=== PATIENT | female | born 2005 | race Caucasian/White ===

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

== ENCOUNTER 2024-06-19 00:37 | Emergency (ER) | payer MEDICAID ==
[~2024-06-19] VITALS: Ht 170.2 cm; Wt 70.3 kg
[~2024-06-19 00:37] MED LIST changes: +CEPH250C PO
[2024-06-19 01:29] LABS: Urine Bacteria MOD /hpf (None Seen); Urine Blood 1+ /uL (Negative); Urine Budding Yeast OCCASIONAL /hpf (None Seen); Urine Clarity Turbid (Clear); Urine Color Yellow (Yellow); Urine Hyaline Cast FEW /lpf (0 - 2); Urine Mucus FEW (None Seen); Urine Protein, UAD 1+ (Negative); Urine Specific Gravity 1.036 (1.001-1.035); Urine Urobilinogen 2 mg/dL (Negative); Urine WBC 38 /hpf (0 - 5)
[2024-06-19 02:02] LABS: Basophils # (auto) 0.1 10 ^3/uL (0-0.2); Eosinophils # (auto) 0 10 ^3/uL (0-0.8); Eosinophils % (auto) 0.2 % (0.0-7.0); Hemoglobin 14.9 g/dL (12.2-16.2); Lymphocytes # (auto) 1.8 10 ^3/uL (0.4-5.4); Lymphocytes % (auto) 17.9 % (10.0-50.0); Mean Corpuscular Hemoglobin 33.2 pg (28.0-32.0); Mean Corpuscular Hgb Conc. 35.5 g/dL (32.0-36.0); Mean Corpuscular Volume 93.4 fL (80.0-100.0); Monocytes # (auto) 0.6 10 ^3/uL (0-1.3); Neutrophils # (auto) 7.5 10 ^3/uL (1.6-8.6); Neutrophils % (auto) 74.9 % (37.0-80.0); Platelet Count (auto) 299 10^3/uL (140-450); Red Blood Cells 4.49 10^6/uL (4.0-5.20)
[2024-06-19 02:17] LABS: Alanine Aminotransferase 10 U/L (7-40); Albumin 5.1 g/dL (3.2-4.8); Alkaline Phosphatase 46 U/L (46-116); Anion Gap 13 (5-15); Aspartate Aminotransferase 11 U/L (13-40); BUN/Creatinine Ratio 11.9 (10.0-20.0); Blood Urea Nitrogen 8 mg/dL (9-23); Calcium 10.3 mg/dL (8.7-10.4); Carbon Dioxide 19 mmol/L (20-31); Chloride 106 mmol/L (98-107); Glucose 83 mg/dL (74-106); Potassium 3.3 mmol/L (3.5-5.1); Sodium 138 mmol/L (136-145)
[2024-06-19 02:18] LABS: Bilirubin, Total 1.2 mg/dL (0.2-1.0); Total Protein 7.9 g/dL (5.7-8.2)
[2024-06-19 03:20] VITALS: TEMP 98.6
[2024-06-19] MEDS: SODIUM CHLORIDE 0.9% 2,000 ML IV ONE (03:35)
[2024-06-19] MEDS: METOCLOPRAMIDE HCL 5MG/ml INJ 2ml VIAL IV ONE (03:35)
[2024-06-19 03:49] VITALS: O2SAT 98
[2024-06-19] MEDS: ONDANSETRON HCL 4 MG/2 ML VIAL IV ONE (04:19)
[2024-06-19] MEDS: MORPHINE SULFATE 4 MG/ML SYR/VIAL IV ONE (04:19)
[2024-06-19] MEDS ORDERED: DOXY10TA OR (04:57)
[2024-06-19] MEDS ORDERED: CEPH500C PO (04:57)
[2024-06-19] MEDS ORDERED: METO-281 PO (04:57)
[2024-06-19 05:07] VITALS: BP 101/54; PULSE 75; RESP 16
[2024-06-19] MEDS ORDERED: cefTRIAXone 1GM/50ML D5W 50 ML IV ONE (05:30)
[2024-06-19] MEDS ORDERED: POTASSIUM CHL 20 Meq TABLET PO ONE (05:30)
== END 2024-06-19 05:24 | disposition home or self-care (01) ==
LOC: ER 00:37
DX: O21.0 Mild hyperemesis gravidarum (principal); R10.2 Pelvic and perineal pain; O23.41 Unspecified infection of urinary tract in pregnancy, first trimester; N39.0 Urinary tract infection, site not specified; E87.6 Hypokalemia; Z3A.01 Less than 8 weeks gestation of pregnancy
CPT/HCPCS: 36415; 76801; 76817; 80053; 81001; 84702; 85025; 96361; 96374; 96375; 99285; J2270; J2405; J2765; J7030

== ENCOUNTER 2024-10-07 23:41 | Observation (INO) | payer MEDICAID ==
[~2024-10-07] VITALS: Ht 170.2 cm; Wt 77.1 kg
[~2024-10-07 23:41] MED LIST changes: +CEPH500C PO; +DOXY10TA OR; +METO-281 PO
[2024-10-08] MEDS: ACETAMINOPHEN 325 MG TAB PO ONE (00:21)
[2024-10-08] MEDS: ACETAMINOPHEN 500 MG TAB or CAP PO ONE (00:21)
--- NOTE | 2024-10-08 00:28 | DVHDS2 ---
Physician Discharge Progress N Final Diagnosis: UTI Right flank pain, resolved Operations or Procedures: Operations or Procedures S: 18yo IUP@22.2wks presents to OB triage with c/o 10/10 pain on right mid back that radiates all over her right side. Pt reports hx of appendectomy. Denies UTI s/sx. Pt has had trouble enrolling in [employer] so she has not received care yet. Taking PNV. Had ED visit at [facility] at 6w3d which gave her the KATY of 02/09/25. Denies UCs/LOF/VB/LUNA/vision changes/RUQ pain. Endorses +FM. O: VSS, afebrile 98.3F per RN +FHTs by RN Right CVA pain noted upon palpation tylenol 1000mg PO given Nubain 10mg IVP once given IV fluids and rocephin 1g IVPB given Urine culture ordered Laboratory Tests Test 10/08/24 00:05 10/08/24 01:02 Range/Units Urine Color Colorless Yellow Urine Clarity Clear Clear Urine pH 7.0 5.0-9.0 Urine Specific Woody 1.004 1.001-1.035 Urine Protein Trace H Negative Urine Ketones Negative Negative Urine Blood 2+ H Negative /uL Urine Nitrite Negative Negative Urine Bilirubin Negative Negative Urine Urobilinogen Normal Negative mg/dL Urine Leukocyte Esterase 2+ Negative /uL Urine RBC 5 0 - 4 /hpf Urine Microscopic WBC 21 H 0-5 /HPF Urine Squamous Epithelial Cells Few <5 /hpf Urine Bacteria Few H None Seen /hpf Urine Glucose Normal Normal mg/dL Urine Opiates Screen Neg NEGATIVE Urine Fentanyl Screen Neg NEGATIVE Urine Barbiturates Screen Neg NEGATIVE Urine Phencyclidine Screen Neg NEGATIVE Urine Amphetamines Screen Neg NEGATIVE Urine Benzodiazepines Screen Neg NEGATIVE Urine Cocaine Screen Neg NEGATIVE Urine Cannabinoids Screen Pos NEGATIVE White Blood Count 9.9 4.4-10.8 10^3/uL Red Blood Count 3.48 L 4.0-5.20 10^6/uL Hemoglobin 11.7 L 12.2-16.2 g/dL Hematocrit 33.0 L 36.0-46.0 % Mean Corpuscular Volume 94.7 80.0-100.0 fL Mean Corpuscular Hemoglobin 33.4 H 28.0-32.0 pg Mean Corpuscular Hemoglobin Concent 35.3 32.0-36.0 g/dL Red Cell Distribution Width 13.6 11.8-14.3 % Platelet Count 238 140-450 10^3/uL Mean Platelet Volume 8.3 6.9-10.8 fL Neutrophils (%) (Auto) 76.1 37.0-80.0 % Lymphocytes (%) (Auto) 14.0 10.0-50.0 % Monocytes (%) (Auto) 8.6 0.0-12.0 % Eosinophils (%) (Auto) 0.9 0.0-7.0 % Basophils (%) (Auto) 0.4 0.0-2.0 % Neutrophils # (Auto) 7.5 1.6-8.6 10 ^3/uL Lymphocytes # (Auto) 1.4 0.4-5.4 10 ^3/uL Monocytes # (Auto) 0.8 0-1.3 10 ^3/uL Eosinophils # (Auto) 0.1 0-0.8 10 ^3/uL Basophils # (Auto) 0 0-0.2 10 ^3/uL Nucleated Red Blood Cells 0.0 % Prothrombin Time 10.1 9.3-11.8 sec Prothrombin Time INR 0.95 0.9-1.15 Activated Partial Thromboplast Time 25.8 24.5-34.5 SEC Sodium Level 137 136-145 mmol/L Potassium Level 3.6 3.5-5.1 mmol/L Chloride Level 108 H 98-107 mmol/L Carbon Dioxide Level 19 L 20-31 mmol/L Anion Gap 10 5-15 Blood Urea Nitrogen < 5 L 9-23 mg/dL Creatinine 0.48 L 0.550-1.02 mg/dL Glomerular Filtration Rate Calc 139 >90 mL/min BUN/Creatinine Ratio 10.4 10.0-20.0 Serum Glucose 84 74-106 mg/dL Hemoglobin A1c 4.6 <5.7 % A1C Calcium Level 9.3 8.7-10.4 mg/dL Total Bilirubin 0.6 0.2-1.0 mg/dL Aspartate Amino Transferase (AST) 14 13-40 U/L Alanine Aminotransferase (ALT) 11 7-40 U/L Alkaline Phosphatase 46 46-116 U/L Total Protein 6.3 5.7-8.2 g/dL Albumin 3.9 3.2-4.8 g/dL Rapid Plasma Reagin Pending Treponema pallidum Ab (TP-PA) Pending Hepatitis B Surface Antigen Negative Negative Hepatitis C Antibody Negative Negative HIV (1&2) Antibody Negative Negative Rubella IgG Antibody Pending TB Test (QFT) Gold Plus Pending TB Test (QFT) Nil Pending TB Test (QFT) Mitogen Pending TB Test (QFT) Antigen 1 Pending TB Test (QFT) Antigen 2 Pending TB Test (QFT) Criteria Pending Vital Signs Date Time Temp Pulse Resp B/P (MAP) Pulse Ox O2 Delivery O2 Flow Rate FiO2 10/08/24 00:49 75 16 115/75 A: 18yo IUP@22.2wks UTI right flank pain, resolved P: D/C home SAB precautions reviewed Drink 1 gallon of water a day Referred to [facility] maternal health clinic to establish PNC with Dr. Silvetsre on 10/08/[address] Silvestre consulted, agrees with POC. Other Interventions Other Interventions [place] [id number] Ph: [phone] DIAGNOSTIC IMAGING Diagnostic Imaging Report : [id number] Signed PATIENT: AJCEY MARTINO GACCT: [id number] UNIT: [id number] : 2005 LOC: [facility] ROOM / BED: TRIAGE2 / A AGE / SEX: 18 / F ADM STATUS: ADM IN SERVICE [id number] ORDERING PHYSICIAN: JORGE PEDERSEN CNM PROCEDURE(s): OBUS - OB ULTRASOUND COMP GTR 14 WKS REASON: NO CARE @ 22.1 WEEKS GESTATION ORDER NUMBER(s): [id number], ACCESSION NUMBER(s): [id number] OB ULTRASOUND, LIMITED CLINICAL INDICATION: NO CARE @ 22.1 WEEKS GESTATION TECHNIQUE: Multiple grayscale ultrasound and M-mode images were obtained of the pelvis for evaluation of intrauterine . COMPARISON: US OB ULTRASOUND COMP LESS 14WKS on DOS: 06/19/24 FINDINGS: A single living fetus is seen in breech presentation. Biparietal diameter: 5.47 cm (22 weeks, 5 days) Head Circumference: 20.76 cm (22 weeks, 6 days) Abdomen Circumference: 18.37 cm (23 weeks, 1 days) Femur Length: 3.82 cm (22 weeks, 2 days) Estimated weight: 533 grams (+/- 80 grams). 1 lb 3 oz Placenta: Anterior. Amniotic fluid: Visibly normal. Cervix is 3.1 cm and closed. heart rate: 135 beats/min. A complete anatomic survey was not performed on this exam. IMPRESSION: Single living intrauterine with an estimated gestational age of 22 weeks, 5 days, corresponding to an estimated date of delivery of 02/06/2025. ATED BY: BELÉN PACHECO MD DICTATED DATE/TIME: 10/08/24200 SIGNED BY: BELÉN PACHECO MD SIGNED DATE/TIME: 10/08/24200 CC: Consultations: Consultations [place] [id number] Ph: [phone] DIAGNOSTIC IMAGING Diagnostic Imaging Report : [id number] Signed PATIENT: JACEY MARTINO GACCT: [id number] UNIT: [id number] : 2005 LOC: [facility] ROOM / BED: TRIAGE2 / A AGE / SEX: 18 / F ADM STATUS: ADM IN SERVICE 0008 ORDERING PHYSICIAN: JORGE PEDERSEN CNM PROCEDURE(s): ABDC - ABDOMEN COMPLETE SONOGRAM REASON: RIGHT SIDED PAIN @ 22.1 WEEKS GESTATION ORDER NUMBER(s): [id number], ACCESSION NUMBER(s): [id number] ABDOMINAL ULTRASOUND CLINICAL HISTORY: RIGHT SIDED PAIN @ 22.1 WEEKS GESTATION TECHNIQUE: Multiple grayscale and color Doppler ultrasound images were obtained of the abdomen. WID: COMPARISON: ABPL on DOS: 12/22/21 FINDINGS: Liver and Biliary System: Homogeneous echotexture, normal size measuring 12.8 cm. No focal hepatic observations. No intrahepatic bile duct dilatation. The common duct measures 0.4 cm at the jarrod hepatis. The gallbladder normal caliber. No cholelithiasis or gallbladder wall thickening.. Pancreas: Obscured due to overlying bowel gas Spleen: is within normal limits. Kidneys: The right kidney is 10.1 cm and the left kidney is 11 cm. Mild right hydronephrosis. No left hydronephrosis, increased echogenicity, shadowing stone, or focal lesion. Aorta: Visualized portions are normal in caliber. IVC: Visualized portions are normal in caliber. Peritoneal Space: No abdominal ascites. IMPRESSION: Mild right hydronephrosis. This could be due to gravid uterus. ATED BY: BELÉN PACHECO MD DICTATED DATE/TIME: 10/08/24199 SIGNED BY: BELÉN PACHECO MD SIGNED DATE/TIME: 10/08/24199 CC: Condition on Discharge: Stable Disposition: Home Discharge Instructions: Diet: Regular Activity: No Restrictions, As Tolerated Medications: see med list Follow Up Care: Specialist: f/u with maternal health on 10/08/24 at 0900 Discharge Statement: "Patient was advised to return to the ER or call 911 if any headaches, dizziness, shortness of breath, chest pain, abdominal pain, bleeding, fevers, or worsening of medical condition. Patient was counseled about treatment plan, medications, possible side effects, patientverbalized understanding. All questions were answered to the best of my ability. This discharge took greater then 30 minutes in planning, reviewing documentation, counseling the patient, and discussing with other team members." JORGE PEDERSEN CNM Oct 08, 2024 00:28
[2024-10-08] MEDS: LACTATED RINGER'S 1,000 ML IV ONE (00:35)
[2024-10-08 00:49] VITALS: BP 115/75; PULSE 75; RESP 16
[2024-10-08] MEDS: NALBUPHINE HCL 10 MG/1ml INJECTION IV ONE (00:49)
[2024-10-08 00:51] LABS: Urine Bacteria FEW /hpf (None Seen); Urine Blood 2+ /uL (Negative); Urine Clarity Clear (Clear); Urine Color Colorless (Yellow); Urine Protein, UAD TRACE (Negative); Urine Specific Gravity 1.004 (1.001-1.035); Urine Squamous Epithelial Cell FEW /hpf (<5); Urine Urobilinogen Normal (Negative); Urine WBC 21 /HPF (0-5)
[2024-10-08 01:23] LABS: Basophils # (auto) 0 10 ^3/uL (0-0.2); Basophils % (auto) 0.4 % (0.0-2.0); Eosinophils # (auto) 0.1 10 ^3/uL (0-0.8); Eosinophils % (auto) 0.9 % (0.0-7.0); Hemoglobin 11.7 g/dL (12.2-16.2); Lymphocytes # (auto) 1.4 10 ^3/uL (0.4-5.4); Mean Corpuscular Hemoglobin 33.4 pg (28.0-32.0); Mean Corpuscular Hgb Conc. 35.3 g/dL (32.0-36.0); Mean Corpuscular Volume 94.7 fL (80.0-100.0); Monocytes # (auto) 0.8 10 ^3/uL (0-1.3); Monocytes % (auto) 8.6 % (0.0-12.0); Neutrophils # (auto) 7.5 10 ^3/uL (1.6-8.6); Neutrophils % (auto) 76.1 % (37.0-80.0); Platelet Count (auto) 238 10^3/uL (140-450); Red Blood Cells 3.48 10^6/uL (4.0-5.20); Red Cell Distribution Width 13.6 % (11.8-14.3); White Blood Cell 9.9 10^3/uL (4.4-10.8)
[2024-10-08 01:42] LABS: Alanine Aminotransferase 11 U/L (7-40); Albumin 3.9 g/dL (3.2-4.8); Alkaline Phosphatase 46 U/L (46-116); Anion Gap 10 (5-15); Aspartate Aminotransferase 14 U/L (13-40); BUN/Creatinine Ratio 10.4 (10.0-20.0); Bilirubin, Total 0.6 mg/dL (0.2-1.0); Blood Urea Nitrogen < 5 mg/dL (9-23); Calcium 9.3 mg/dL (8.7-10.4); Carbon Dioxide 19 mmol/L (20-31); Chloride 108 mmol/L (98-107); Glucose 84 mg/dL (74-106); Potassium 3.6 mmol/L (3.5-5.1); Sodium 137 mmol/L (136-145); Total Protein 6.3 g/dL (5.7-8.2)
[2024-10-08 01:44] LABS: INR 0.95 (0.9-1.15); Partial Thromboplastin Time 25.8 SEC (24.5-34.5); Prothrombin Time 10.1 sec (9.3-11.8)
[2024-10-08 01:57] LABS: Amphetamine Screen, Urine Neg (NEGATIVE); Barbiturate Scree,Urine Neg (NEGATIVE)
[2024-10-08 01:58] LABS: Benzodiazephine Screen, Urine Neg (NEGATIVE); Cannabinoid Screen, Urine Pos (NEGATIVE); Cocaine Screen, Urine Neg (NEGATIVE); Opiate Scree,Urine Neg (NEGATIVE); Phencyclidine Screen, Urine Neg (NEGATIVE)
--- NOTE | 2024-10-08 02:03 | DVH ---
ABDOMINAL ULTRASOUND CLINICAL HISTORY: RIGHT SIDED PAIN @ 22.1 WEEKS GESTATION TECHNIQUE: Multiple grayscale and color Doppler ultrasound images were obtained of the abdomen. WID: COMPARISON: ABPL on DOS: 12/22/21 FINDINGS: Liver and Biliary System: Homogeneous echotexture, normal size measuring 12.8 cm. No focal hepatic observations. No intrahepatic bile duct dilatation. The common duct measures 0.4 cm at the jarrod h epatis. The gallbladder normal caliber. No cholelithiasis or gallbladder wall thickening.. Pancreas: Obscured due to overlying bowel gas Spleen: is within normal limits. Kidneys: The right kidney is 10.1 cm and the left kidney is 11 cm. Mild right hydronephrosis. No le ft hydronephrosis, increased echogenicity, shadowing stone, or focal lesion. Aorta: Visualized portions are normal in caliber. IVC: Visualized portions are normal in caliber. Peritoneal Space: No abdominal ascites. IMPRESSION: Mild right hydronephrosis. This could be due to gravid uterus.
--- NOTE | 2024-10-08 02:04 | DVH ---
OB ULTRASOUND, LIMITED CLINICAL INDICATION: NO CARE @ 22.1 WEEKS GESTATION TECHNIQUE: Multiple grayscale ultrasound and M-mode images were obtained of the pelvis for evaluation of intrauterine . COMPARISON: US OB ULTRASOUND COMP LESS 14WKS on DOS: 06/19/24 FINDINGS: A single living fetus is seen in breech presentation. Biparietal diameter: 5.47 cm (22 weeks, 5 days) Head Circumference: 20.76 cm (22 weeks, 6 days) Abdomen Circumference: 18.37 cm (23 weeks, 1 days) Femur Length: 3.82 cm (22 weeks, 2 days) Estimated weight: 533 grams (+/- 80 grams). 1 lb 3 oz Placenta: Anterior. Amniotic fluid: Visibly normal. Cervix is 3.1 cm and closed. heart rate: 135 beats/min. A complete anatomic survey was not performed on this exam. IMPRESSION: Single living intrauterine with an estimated gestational age of 22 weeks, 5 days, corresp onding to an estimated date of delivery of 02/06/2025.
[2024-10-08] MEDS: cefTRIAXone 1GM/50ML D5W 50 ML IV ONE (02:17)
[2024-10-08] MEDS: SODIUM CHLORIDE 0.9% 1,000 ML IV SCH (02:18)
[2024-10-08] MEDS ORDERED: diphenhdrAMINE HCL 50 MG/1 ML VL IV ONE (03:15)
[2024-10-08] MEDS ORDERED: PREN-96 PO (12:47)
[2024-10-09 05:07] LABS: Rubella Antibodies, IgG 1.38 index (Immune >0.99)
[2024-10-09 08:06] LABS: RPR Non Reactive (Non Reactive)
== END 2024-10-08 03:12 | disposition home or self-care (01) ==
LOC: LDRP 23:41
PROVIDERS: ADMIT Obstetrics & Gynecology; ATTEND Obstetrics & Gynecology
DX: O23.42 Unspecified infection of urinary tract in pregnancy, second trimester (principal); N39.0 Urinary tract infection, site not specified; O99.891 Other specified diseases and conditions complicating pregnancy; M54.9 Dorsalgia, unspecified; R10.9 Unspecified abdominal pain; R79.1 Abnormal coagulation profile; Z90.49 Acquired absence of other specified parts of digestive tract; Z98.890 Other specified postprocedural states; Z79.899 Other long term (current) drug therapy; Z3A.22 22 weeks gestation of pregnancy
CPT/HCPCS: 36415; 59025; 76700; 76805; 80053; 80307; 81001; 81002; 83036; 85025; 85610; 85730; 86592; 86703; 86762; 86780; 86803; 86850; 86900; 86901; 87086; 87340; 94760; 96361; 96365; 96375; G0378; J0696; J2300; J7030; 96374

== ENCOUNTER 2024-12-14 20:11 | Observation (INO) | payer MEDICAID ==
[~2024-12-14] VITALS: Ht 170.2 cm; Wt 77.1 kg
[~2024-12-14 20:11] MED LIST changes: -CEPH250C PO; -CEPH500C PO; -CIPR-173 PO; -DOXY10TA OR; -HYDR-4902 PO; -METO-281 PO; -ONDA-144 PO; -PERCOT PO; +PREN-96 PO
[2024-12-14] MEDS ORDERED: LACTATED RINGER'S 1,000 ML IV ONE (21:00)
[2024-12-14 21:05] LABS: Urine Bacteria FEW /hpf (None Seen); Urine Blood Negative /uL (Negative); Urine Clarity Turbid (Clear); Urine Color Colorless (Yellow); Urine Protein, UAD Negative (Negative); Urine Specific Gravity 1.006 (1.001-1.035); Urine Sperm PRESENT /hpf (None Seen); Urine Squamous Epithelial Cell MOD /hpf (<5); Urine Urobilinogen Normal (Negative); Urine WBC 5 /HPF (0-5)
[2024-12-14 21:16] LABS: Cannabinoid Screen, Urine Pos (NEGATIVE)
[2024-12-14 21:28] LABS: Basophils # (auto) 0 10 ^3/uL (0-0.2); Basophils % (auto) 0.2 % (0.0-2.0); Eosinophils # (auto) 0.1 10 ^3/uL (0-0.8); Hematocrit 30.7 % (36.0-46.0); Hemoglobin 10.9 g/dL (12.2-16.2); Lymphocytes # (auto) 1.6 10 ^3/uL (0.4-5.4); Lymphocytes % (auto) 16.6 % (10.0-50.0); Mean Corpuscular Hemoglobin 32.7 pg (28.0-32.0); Mean Corpuscular Hgb Conc. 35.6 g/dL (32.0-36.0); Mean Corpuscular Volume 91.8 fL (80.0-100.0); Monocytes # (auto) 0.7 10 ^3/uL (0-1.3); Monocytes % (auto) 7.7 % (0.0-12.0); Neutrophils # (auto) 7.1 10 ^3/uL (1.6-8.6); Neutrophils % (auto) 74.5 % (37.0-80.0); Nucleated Red Blood Cells % 0.1 %; Platelet Count (auto) 226 10^3/uL (140-450); Red Blood Cells 3.34 10^6/uL (4.0-5.20); White Blood Cell 9.6 10^3/uL (4.4-10.8)
[2024-12-14 21:29] LABS: Amphetamine Screen, Urine Neg (NEGATIVE); Barbiturate Scree,Urine Neg (NEGATIVE); Benzodiazephine Screen, Urine Neg (NEGATIVE); Cocaine Screen, Urine Neg (NEGATIVE); Opiate Scree,Urine Neg (NEGATIVE); Phencyclidine Screen, Urine Neg (NEGATIVE)
--- NOTE | 2024-12-14 23:22 | DVHDS2 ---
Physician Discharge Progress N Final Diagnosis: 31 weeks gestation Abdominal discomfort Condition on Discharge: Good Disposition: Home Discharge Instructions: Diet: Regular Activity: No Restrictions, As Tolerated Follow Up/Referral: RTC as scheduled. RTH PRN Medications: vits Follow Up Care: Discharge Statement: "Patient was advised to return to the ER or call 911 if any headaches, dizziness, shortness of breath, chest pain, abdominal pain, bleeding, fevers, or worsening of medical condition. Patient was counseled about treatment plan, medications, possible side effects, patientverbalized understanding. All questions were answered to the best of my ability. This discharge took greater then 30 minutes in planning, reviewing documentation, counseling the patient, and discussing with other team members." Visit Coding OBGYN Date of Service: Dec 14, 2024 Billing Provider: TIFFANIE RASHID CNM ABA TUTOR Common Visit Codes: 62796-UFP/OBS SAME DATE (HIGH) ABA TUTOR Procedure Codes: 61684-04- NON-STRESS TEST TIFFANIE RASHID CNM Dec 14, 2024 23:22
[2024-12-16 08:07] LABS: Rubella Antibodies, IgG 1.27 index (Immune >0.99)
[2024-12-16 15:07] LABS: Chlamydia Trachomatis, NAA Negative (Negative); Neisseria gonorrhoeae, NAA Negative (Negative)
== END 2024-12-14 22:29 | disposition home or self-care (01) ==
LOC: LDRP 20:11
PROVIDERS: ADMIT Obstetrics & Gynecology; ATTEND Obstetrics & Gynecology
DX: O99.891 Other specified diseases and conditions complicating pregnancy (principal); M54.9 Dorsalgia, unspecified; R10.9 Unspecified abdominal pain; Z98.890 Other specified postprocedural states; Z79.899 Other long term (current) drug therapy; Z3A.31 31 weeks gestation of pregnancy
CPT/HCPCS: 36415; 59025; 80307; 81001; 81002; 83036; 85025; 86703; 86762; 86780; 86850; 86900; 86901; 87340; 87491; 87591; 94760; 96360; G0378

== ENCOUNTER 2025-06-15 15:25 | Inpatient (IN) | payer MEDICAID ==
[~2025-06-15] VITALS: Ht 162.6 cm; Wt 82.2 kg
[2025-06-15 15:53] LABS: Hematocrit 37.2 % (36.0-46.0); Hemoglobin 13.1 g/dL (12.2-16.2); Mean Corpuscular Hemoglobin 29.3 pg (28.0-32.0); Mean Corpuscular Volume 83.2 fL (80.0-100.0); Nucleated Red Blood Cells % 0.6 %
[2025-06-15 16:23] LABS: Urine Protein, UAD 1+ (Negative)
--- NOTE | 2025-06-15 17:09 | ED.PDOC ---
History of Present Illness HPI Comments 19-year-old female came to the ER stating that she has been having nausea vomiting for the past five days. Patient states that along with the nausea vomiting she has been having abdominal pain. three. One live. She did have D&C during her last . This CT turbinate by taking pills last pill taken today. She continues to have nausea. She does have hyperemesis gravidim. Denies any other symptoms. Chief Complaint: Abdominal Pain Time Seen by MD: 15:28 Primary Care Provider: DU Reviewed Notes: Nurses Notes, Medications, Allergies Allergies: Coded Allergies: Shellfish Allergy (Verified Allergy, Severe, Hives and Respiratory Distress, 12/14/24) Home Meds Active Scripts Vit W/ Ferrous Fumara ( One Daily) Daily Tab, 1 TAB PO DAILY, #90 TAB 3 Refills Prov:JORGE PEDERSEN MARNIEItz 10/08/24 Information Source: Patient Mode of Arrival: Ambulatory Severity: Moderate Timing: Days Duration: Since onset Past Medical History PAST MEDICAL HISTORY: Denies Surgical History: Denies all surgeries YARN WASHER History: No Pertinent YARN WASHER History, Ovarian Cysts Family History Family History: Reviewed,noncontributory to illness, No family hx of DM, No family hx of Heart stormy, No family hx of Lung stormy Social History Smoker: Non-Smoker Alcohol: Denies ETOH Use Drugs: Denies Drug Use Lives In: Home Constitutional: denies: chills, diaphoresis, fatigue, fever, malaise, sweats, weakness, others EENTM: denies: blurred vision, double vision, ear bleeding, ear discharge, ear drainage, ear pain, ear ringing, eye pain, eye redness, hearing loss, mouth pain, mouth swelling, nasal discharge, nose bleeding, nose congestion, nose pain, photophobia, tearing, throat pain, throat swelling, voice changes, others Respiratory: denies: cough, hemoptysis, orthopnea, SOB at rest, shortness of b reath, SOB with excertion, stridor, wheezing, others Cardiovascular: denies: chest pain, dizzy spells, diaphoresis, Dyspnea on exertion, edema, irregular heart beat, left arm pain, lightheadedness, palpitations, PND, syncope, others Gastrointestinal: reports: nausea, vomiting; denies: abdomen distended, abdominal pain, blood streaked bowels, constipated, diarrhea, dysphagia, difficulty swallowing, hematemesis, melena, poor appetite, poor fluid intake, rectal bleeding, rectal pain, others Genitourinary: denies: abnormal vagina bleeding, burning, dyspareunia, dysuria, flank pain, frequency, hematuria, incontinence, pain, , vagina discharge, urgency, others Neurological: denies: dizziness, fainting, headache, left sided numbness, left sided weakness, numbness, paresthesia, pre-existing deficit, right sided numbness, right sided weakness, seizure, speech problems, tingling, tremors, weakness, others Musculoskeletal: denies: back pain, gout, joint pain, joint swelling, muscle pain, muscle stiffness, neck pain, others Integumetry: denies: bruises, change in color, change in hair/nails, dryness, laceration, lesions, lumps, rash, wounds, others Allergic/Immunocompromised: denies: Difficulty Healing, Frequent Infections, Hives, Itching, others Hematologic/Lymphatic: denies: anemia, blood clots, easy bleeding, easy bruising, swollen glands, others Endocrine: denies: excessive hunger, excessive sweating, excessive thirst, excessive urination, flushing, intolerance to cold, intolerance to heat, unexplained weight gain, unexplained weight loss, others Psychiatric: denies: anxiety, bipolar disorder, depression, hopeless, panic disorder, schizophrenia, sleepless, suicidal, others Physical Exam General Appearance: Moderate Distress HEENT: Normal ENT Inspection, Pharynx Normal, TMs Normal Neck: Full Range of Motion, Non-Tender, Normal, Normal Inspection Respiratory: Chest Non-Tender, Lungs Clear, No Accessory Muscle Use, No Respiratory Distress, Normal Breath Sounds Cardiovascular: No Edema, No JVD, No Murmur, No Gallop, Normal Peripheral Pulses, Regular Rate/Rhythm Breast Exam: Deferred Gastrointestinal: No Organomegaly, Non Tender, No Pulsatile Mass, Normal Bowel Sounds, Soft Genitalia: Deferred Pelvic: Deferred Rectal: Deferred Extremities: No calf tenderness, Normal capillary refill, Normal inspection, Normal range of motion, Non-tender, No pedal edema Musculoskeletal : Apperance: Normal Neurologic: Alert, director medical writing II-XII nml as Tested, No Motor Deficits, Normal Affect, Normal Mood, No Sensory Deficits Cerebellar Function: Normal Reflexes: Normal Skin: Dry, Normal Color, Warm Peripheral Pulses: 3+ Radial (R), 3+ Radial (L) Lymphatic: No Adenopathy Was a procedure done? Was a procedure done?: No Differential Dx Considerations may include: Intractable vomiting Electrolyte imbalance X-Ray, Labs, Meds, VS Vital Signs Date Time Temp Pulse Resp B/P (MAP) Pulse Ox O2 Delivery O2 Flow Rate FiO2 06/15/25 15:27 99.2 86 16 124/79 97 99.2 Lab Test 06/15/25 15:43 06/15/25 15:33 Range/Units White Blood Count 8.1 4.4-10.8 10^3/uL Red Blood Count 4.48 4.0-5.20 10^6/uL Hemoglobin 13.1 12.2-16.2 g/dL Hematocrit 37.2 36.0-46.0 % Mean Corpuscular Volume 83.2 80.0-100.0 fL Mean Corpuscular Hemoglobin 29.3 28.0-32.0 pg Mean Corpuscular Hemoglobin Concent 35.2 32.0-36.0 g/dL Red Cell Distribution Width 15.8 H 11.8-14.3 % Platelet Count 354 140-450 10^3/uL Mean Platelet Volume 7.9 6.9-10.8 fL Neutrophils (%) (Auto) 66.7 37.0-80.0 % Lymphocytes (%) (Auto) 25.0 10.0-50.0 % Monocytes (%) (Auto) 7.1 0.0-12.0 % Eosinophils (%) (Auto) 0.7 0.0-7.0 % Basophils (%) (Auto) 0.5 0.0-2.0 % Neutrophils # (Auto) 5.4 1.6-8.6 10 ^3/uL Lymphocytes # (Auto) 2.0 0.4-5.4 10 ^3/uL Monocytes # (Auto) 0.6 0-1.3 10 ^3/uL Eosinophils # (Auto) 0.1 0-0.8 10 ^3/uL Basophils # (Auto) 0 0-0.2 10 ^3/uL Nucleated Red Blood Cells 0.6 % Urine Color Yellow Yellow Urine Clarity Clear Clear Urine pH 6.0 5.0-9.0 Urine Specific [place] 1.037 H 1.001-1.035 Urine Protein 1+ H Negative Urine Ketones 4+ H Negative Urine Blood 2+ H Negative /uL Urine Nitrite Negative Negative Urine Bilirubin Negative Negative Urine Urobilinogen 2 H Negative mg/dL Urine Leukocyte Esterase 1+ Negative /uL Urine RBC 110 0 - 4 /hpf Urine Microscopic WBC 16 H 0-5 /HPF Urine Squamous Epithelial Cells Few <5 /hpf Urine Bacteria None seen None Seen /hpf Urine Mucus Few None Seen Urine Glucose Normal Normal mg/dL Urine Test Positive Negative Patient alert. Complaining of nausea vomiting. Vitals stable. Answering questions. She did take an pill. UA shows UTI. Was given Keflex. She continues to have vomiting. Establish intravenous access. Was given fluids. Explained to the patient that she will be admitted. Continue monitoring. Time of 1ST Reevaluation: 17:07 Reevaluation 1ST: Unchanged Patient Education/Counseling: Diagnosis, Treatment, Prognosis Family Education/Counseling: Diagnosis, Treatment, Prognosis, No Family Present SEPSIS Sepsis Screen Date sepsis recognized/suspect: Jun 15, 2025 Time Sepsis recognized/suspect: 1526 Recent Procedure: No On Antibiotic Therapy: No Respiratory Rate >20: No Heart Rate >90: No Temp<36 C (96.8 F) or >38.3 C: No SBP <90 or MAP <65 mmHG: No New Acute Mental Status Change: No Is the patient on CPAP, BIPAP,: No Physician Orders Ob Ultrasound Comp Less 14wks (06/15/25 16:35) Sodium Chloride 0.9% (06/15/25 16:45) Complete Blood Count (06/15/25 16:49) Basic Metabolic Panel (06/15/25 16:49) Sodium Chloride 0.9% (06/15/25 17:00) Sodium Chloride 0.9% (06/15/25 17:00) Vital Signs Date Time Temp Pulse Resp B/P (MAP) Pulse Ox O2 Delivery O2 Flow Rate FiO2 06/15/25 15:27 99.2 86 16 124/79 97 99.2 Laboratory Tests Test 06/15/25 15:43 White Blood Count 8.1 10^3/uL (4.4-10.8) Departure 1 Departure Time of Disposition: 17:08 Impression: Primary Impression: Dehydration Additional Impressions: Urinary tract infection Qualified Codes: N30.01 - Acute cystitis with hematuria Vaginal bleeding Disposition: ADMITTED INPATIENT Admit to: Med Surg Condition: Guarded Critical Care Note Critical Care Time?: No Stability Stability form required: No Heart Score Heart Score: Heart Score Response (Comments) Value History N/A 0 EKG N/A 0 Age N/A 0 Risk Factors N/A 0 Troponin N/A 0 Total 0 WILLIAM WRIGHT MD Jun 15, 2025 17:09
[2025-06-15] MEDS: SODIUM CHLORIDE 0.9% 1,000 ML IV ONE ×3 (17:35→19:05)
--- NOTE | 2025-06-15 17:44 | DVH ---
OBSTETRIC ULTRASOUND PRIOR TO 14 WEEKS CLINICAL INDICATION: cramping, patient took pill yesterday. Heavy bleeding. TECHNIQUE: Multiple grayscale ultrasound images were obtained of the pelvis via transabdominal a appr [facility] for obstetric evaluation. Limited color Doppler and spectral Doppler acquisitions were also obta ined. COMPARISON: US OB ULTRASOUND COMP GTR 14 WKS on DOS: 10/08/24, US OB ULTRASOUND COMP LESS 14WKS on DOS : 06/19/24, US OB TRANS VAGINAL US on DOS: 06/19/24 FINDINGS: Uterus: 10.2 x 5.5 x 5.9 cm. Endometrium measures 7.3 mm. no intrauterine . Right adnexa: right ovary 3.9 x 3.2 x 3.0 cm. Normal arterial blood flow in the ovary. No right adne xal mass seen. Left adnexa: left ovary 2.7 x 2.3 x 2.4 cm. Normal arterial blood flow in the ovary. No left adnexal mass seen. Other: None IMPRESSION: 1. No intrauterine or ectopic seen at this time.
[2025-06-15] MEDS: CEPHALEXIN 250 MG CAP PO ONE (17:45)
[2025-06-15] MEDS: ONDANSETRON HCL 4 MG/2 ML VIAL IV ONE (17:45)
[2025-06-15] MEDS: MORPHINE SULFATE 4 MG/ML SYR/VIAL IV ONE (17:46)
[2025-06-15 17:48] LABS: Sodium 140 mmol/L (136-145)
[2025-06-15 17:49] LABS: Anion Gap 15 (5-15)
[2025-06-15 17:50] LABS: Calcium 9.5 mg/dL (8.7-10.4)
[2025-06-15 17:55] LABS: BUN/Creatinine Ratio 11.8 (10.0-20.0); Glucose 89 mg/dL (74-106)
[2025-06-15 18:14] LABS: Blood Urea Nitrogen 9 mg/dL (9-23); Carbon Dioxide 18 mmol/L (20-31); Chloride 107 mmol/L (98-107); Potassium 3.3 mmol/L (3.5-5.1)
[2025-06-15 20:24] VITALS: O2SAT 99
[2025-06-15] MEDS ORDERED: MORPHINE SULFATE 4 MG/ML SYR/VIAL IV PRN (21:30)
[2025-06-15] MEDS ORDERED: POTASSIUM CHL 20MEQ/100ML 100 ML IV SCH (21:30)
[2025-06-15 21:35] LABS: Alanine Aminotransferase 10.0 U/L (7-40); Alkaline Phosphatase 54.0 U/L (46-116); Magnesium 1.8 mg/dL (1.6-2.6); Total Protein 7.9 g/dL (5.7-8.2)
[2025-06-15 21:36] LABS: Bilirubin, Total 0.9 mg/dL (0.2-1.0)
[2025-06-15 21:37] LABS: Albumin 4.9 g/dL (3.2-4.8); Bilirubin, Direct 0.4 mg/dL (<0.3)
[2025-06-15 21:47] LABS: Lipase 40.0 U/L (12-53)
[2025-06-15 22:05] VITALS: BP 100/57; PULSE 52; RESP 16; TEMP 98.5
--- NOTE | 2025-06-15 22:14 | DVHHPRES ---
History of Present Illness Resident Creating Document: RAHEEL CERDA History of Present Illness Ms. Gilman is a 19-year-old female, G3A2P1, with prior medical history of previous suicide attempt, who presents today with chief complaint of vomiting and abdominal pain. The patient states she was recently diagnosed with hyperemesis gravidum. That for the last five days she has had persistent emetic episodes (approximately every 15-20 minutes), with 6+ episodes today, which have kept her from being able to eat or drink water. This was associated with right flank pain described as achy, intermittent, non-radiating, 3-4/10 intensity, aggravated by movements, without relieving factors. The patient states she terminated her yesterday via pill and completed process with a D&C today. Due to persistent vomiting the patient sought medical attention at the ED. On evaluation in the ED, the patient was hypotensive. Initial labs show CBC within normal range, hypokalemia, decreased TSH, and [place] [address].5. UA is suggestive of UTI. Transabdominal obstetric ultrasound shows no intrauterine or ectopic . The patient was started on IV Zofran, IV fluids, and antibiotics. She was admitted for further work up and monitoring. Psych: Other (Previous suicide attempt) Past Surgical History: Appendectomy, Other (Corrective surgeries for tracheomalacia) Family History: CAD, Other (Asthma) ALCOHOL: none Drugs: Marijuana (Refers she smokes 2 joints a day for the last 10 years) Lives: with Family Past Social History The patient states she utilizes nicotine vape multiple times a day and has done so for the last 4-5 months Review of Systems Review of Systems Constitutional: Refers she feels dehydrated, refers minor nausea, Denies weight loss, fever and chills. HEENT: Denies changes in vision and hearing. Respiratory: Denies shortness of breath and cough Cardiovascular: Denies chest discomfort or palpitations GI: Denies abdominal distention, abdominal pain, diarrhea : States she currently has some vaginal bleeding secondary to D&C, Denies dysuria and urinary frequency. Musculoskeletal: Refers localized back pain Skin: Denies rash and pruritus. Neurological: denies dizziness headache vision or hearing problems Allergies: Coded Allergies: Shellfish Allergy (Verified Allergy, Severe, Hives and Respiratory Distress, 12/14/24) Medications Current Medications Medications Dose Ordered Sig/Deepti Route Start Time Stop Time Status Last Admin Dose Admin Morphine Sulfate 2 mg Q4HPRN PRN IV 06/15/25 21:30 Potassium Chloride 100 ml @ 50 mls/hr Q2H IV 06/15/25 21:30 06/16/25 01:29 Ceftriaxone Sodium 50 ml @ 100 mls/hr DAILY@09 IV 06/15/25 21:30 06/15/25 22:11 100 MLS/HR Exam Vital Signs Vital Signs Date Time Temp Pulse Resp B/P (MAP) Pulse Ox O2 Delivery O2 Flow Rate FiO2 06/15/25 22:05 98.5 52 16 100/57 (71) 98.5 06/15/25 20:24 99 06/15/25 17:43 Room Air* 0 21 Exam General: The patient alert and oriented in person place and time. Patient following commands HEENT: Normocephalic, atraumatic, normal reactive pupils, EOM intact, pale conjunctiva, pink dry mucous membrane Respiratory/pulmonary: Bilateral chest expansion, no pain on palpation of chest wall, clear lungs bilaterally, vesicular murmurs present in almost all lung christina, no associated crackles or wheezes. Cardiovascular: Normal RRR, normal S1 and S2, no murmurs Abdomen: Abdomen nondistended, normal bowel sounds, soft, pain on palpation of right flank, no palpable masses. Extremities: No deformities, there is no peripheral edema present at the lower extremities, normal pulses Skin: No rashes or pruritus, there is no sacral edema present at this time. Neurological: Intact cranial nerves with no focal neurologic deficits Labs/Xrays Labs Test 06/15/25 21:37 06/15/25 15:43 06/15/25 15:33 Range/Units White Blood Count 8.1 4.4-10.8 10^3/uL Red Blood Count 4.48 4.0-5.20 10^6/uL Hemoglobin 13.1 12.2-16.2 g/dL Hematocrit 37.2 36.0-46.0 % Mean Corpuscular Volume 83.2 80.0-100.0 fL Mean Corpuscular Hemoglobin 29.3 28.0-32.0 pg Mean Corpuscular Hemoglobin Concent 35.2 32.0-36.0 g/dL Red Cell Distribution Width 15.8 H 11.8-14.3 % Platelet Count 354 140-450 10^3/uL Mean Platelet Volume 7.9 6.9-10.8 fL Neutrophils (%) (Auto) 66.7 37.0-80.0 % Lymphocytes (%) (Auto) 25.0 10.0-50.0 % Monocytes (%) (Auto) 7.1 0.0-12.0 % Eosinophils (%) (Auto) 0.7 0.0-7.0 % Basophils (%) (Auto) 0.5 0.0-2.0 % Neutrophils # (Auto) 5.4 1.6-8.6 10 ^3/uL Lymphocytes # (Auto) 2.0 0.4-5.4 10 ^3/uL Monocytes # (Auto) 0.6 0-1.3 10 ^3/uL Eosinophils # (Auto) 0.1 0-0.8 10 ^3/uL Basophils # (Auto) 0 0-0.2 10 ^3/uL Nucleated Red Blood Cells 0.6 % Sodium Level 140 136-145 mmol/L Potassium Level 3.3 L 3.5-5.1 mmol/L Chloride Level 107 98-107 mmol/L Carbon Dioxide Level 18 L 20-31 mmol/L Anion Gap 15 5-15 Blood Urea Nitrogen 9 9-23 mg/dL Creatinine 0.76 0.550-1.02 mg/dL Glomerular Filtration Rate Calc 114 >90 mL/min BUN/Creatinine Ratio 11.8 10.0-20.0 Serum Glucose 89 74-106 mg/dL Hemoglobin A1c 4.7 <5.7 % A1C Calcium Level 9.5 8.7-10.4 mg/dL Phosphorus Level 3.3 2.4-5.1 mg/dL Magnesium Level 1.8 1.6-2.6 mg/dL Total Bilirubin 0.9 0.2-1.0 mg/dL Direct Bilirubin 0.4 H <0.3 mg/dL Aspartate Amino Transferase (AST) 16 13-40 U/L Alanine Aminotransferase (ALT) 10 7-40 U/L Alkaline Phosphatase 54 46-116 U/L Total Protein 7.9 5.7-8.2 g/dL Albumin 4.9 H 3.2-4.8 g/dL Lipase 40 12-53 U/L Vitamin B12 Level 393 211-911 pg/mL Vitamin D 25-Hydroxy 22.9 L 30.0-100 ng/mL Urine Color Yellow Yellow Urine Clarity Clear Clear Urine pH 6.0 5.0-9.0 Urine Specific [place] 1.037 H 1.001-1.035 Urine Protein 1+ H Negative Urine Ketones 4+ H Negative Urine Blood 2+ H Negative /uL Urine Nitrite Negative Negative Urine Bilirubin Negative Negative Urine Urobilinogen 2 H Negative mg/dL Urine Leukocyte Esterase 1+ Negative /uL Urine RBC 110 0 - 4 /hpf Urine Microscopic WBC 16 H 0-5 /HPF Urine Squamous Epithelial Cells Few <5 /hpf Urine Bacteria None seen None Seen /hpf Urine Mucus Few None Seen Urine Glucose Normal Normal mg/dL Urine Test Positive Negative SEPSIS Sepsis Screen Date sepsis recognized/suspect: Jun 15, 2025 Time Sepsis recognized/suspect: 1743 Recent Procedure: No On Antibiotic Therapy: No Respiratory Rate >20: No Heart Rate >90: No Temp<36 C (96.8 F) or >38.3 C: No SBP <90 or MAP <65 mmHG: No New Acute Mental Status Change: No Is the patient on CPAP, BIPAP,: No Physician Orders Ob Ultrasound Comp Less 14wks (06/15/25 16:35) Sodium Chloride 0.9% (06/15/25 17:00) Urine Bacterial Culture (06/15/25 20:59) Lactic Acid W/ Reflex Order (06/15/25 20:59) Thyroid Stimulating Hormone (06/15/25 20:59) Admit (06/15/25 21:19) Allergies (06/15/25 21:19) Code Status (06/15/25 21:19) Complete Blood Count (06/16/25 04:00) Condition: Stable (06/15/25 21:19) Stat Ekg For Chest Pain (06/15/25 21:19) Notify Md Of Changes From Base (06/15/25 21:19) Geospatial Image Analyst For 24 Hours (06/15/25 21:19) Emergency Dysrhythmia Protocol (06/15/25 21:19) Rhythm Strips Once Every Shift (06/15/25 21:19) Basic Metabolic Panel (06/16/25 04:00) Potassium Chl 20meq/100ml (06/15/25 21:30) Ceftriaxone 1gm/50ml (Rocephin) (06/15/25 21:30) Morphine Sulfate Injection (06/15/25 21:30) Vital Signs Date Time Temp Pulse Resp B/P (MAP) Pulse Ox O2 Delivery O2 Flow Rate FiO2 06/15/25 22:05 98.5 52 16 100/57 (71) 98.5 06/15/25 20:24 99.2 69 17 95/61 (72) 99 99.2 06/15/25 17:48 98.5 62 16 111/56 (74) 98 98.5 06/15/25 17:46 63 16 111/56 06/15/25 17:43 Room Air* 0 21 06/15/25 15:27 99.2 86 16 124/79 97 99.2 Laboratory Tests Test 06/15/25 15:43 06/15/25 21:37 White Blood Count 8.1 10^3/uL (4.4-10.8) Lactic Acid Level Pending Medications Medications Dose Ordered Sig/Deepti Route Start Time Stop Time Status Last Admin Dose Admin Ceftriaxone Sodium 50 ml @ 100 mls/hr DAILY@09 IV 06/15/25 21:30 06/15/25 22:11 100 MLS/HR Cephalexin 500 mg ONCE ONCE PO 06/15/25 16:45 06/15/25 16:46 DC 06/15/25 17:45 500 MG Morphine Sulfate 4 mg ONCE ONCE IV 06/15/25 17:00 06/15/25 17:01 DC 06/15/25 17:46 4 MG Ondansetron HCl 4 mg ONCE ONCE IV 06/15/25 17:00 06/15/25 17:01 DC 06/15/25 17:45 4 MG Sodium Chloride 1,000 ml @ 150 mls/hr Q6H40M ONCE IV 06/15/25 17:00 06/15/25 23:39 06/15/25 19:05 150 MLS/HR Sodium Chloride 1,000 ml @ 1,000 mls/hr Q1H ONCE IV 06/15/25 16:45 06/15/25 17:44 DC 06/15/25 17:35 1,000 MLS/HR Sodium Chloride 1,000 ml @ 1,000 mls/hr Q1H ONCE IV 06/15/25 17:00 06/15/25 17:59 DC 06/15/25 18:20 1,000 MLS/HR Assessment/Plan Assessment/Plan Assessment and Plan: Intractable vomiting secondary to Hyperemesis Gravidum Dehydration secondary to above - Zofran 4 mg IV once - Zofran 4 mg IV q.4 hours PRN - NS 1000 cc bolus x2 - NS maintenance 150 cc/hour - Pantoprazole 40 mg IV daily - NPO Hypokalemia, 3.3, secondary to above -Potassium IV 40 mEq, once , s/p voluntary termination - Transabdominal obstetric ultrasound: No intrauterine or ectopic - Urine bHCG: Positive - bHCG quantitative: 16843.5 - F/u outpatient with gynecology Acute Cystits with hematuria - Cephalexin 500 mg p.o. once - Ceftriaxone 1 g IV daily - Urine cultures ordered Vitamin D Deficiency Tobacco use - I have counseled the patient on the importance of complete tobacco cessation for 12 minutes. Marijuana Use - I have counseled the patient on the importance of marijuana and illicit drug cessation for over 15 minutes. Obesity, BMI 31.1 kg/m2 - I have counseled the patient on the importance of maintaining a balanced diet, weight loss, and regular moderate exercise. Diet: NPO DVT prophylaxis: Not indicated, patient is currently bleeding from D&C GI prophylaxis: Protonix 40 mg IV daily Case discussed with Dr. Gilmore Goals of care discussed with the patient and her for over 30 minutes. FULL CODE. Plan discussed with: Patient, Spouse, Other (Nurses) My Orders Orders - RAHEEL CERDA RESIDENT Procedure Category Date Status Time Urine Bacterial LM 06/15/25 In Process Culture 20:59 Lactic Acid W/ Reflex LAB 06/15/25 In Process Order 20:59 Thyroid Stimulating LAB 06/15/25 In Process Hormone 20:59 Admit ADMIT 06/15/25 Transmitted 21:19 Allergies PEDRITO 06/15/25 In Process 21:19 Code Status CODE 06/15/25 Transmitted 21:19 Complete Blood Count LAB 06/16/25 Verified 04:00 Condition: Stable PEDRITO 06/15/25 In Process 21:19 Stat Ekg For Chest PEDRITO 06/15/25 In Process Pain 21:19 Notify Of Changes PEDRITO 06/15/25 In Process From Base 21:19 Geospatial Image Analyst For [facility] 06/15/25 In Process 24 Hours 21:19 Emergency Dysrhythmia PEDRITO 06/15/25 In Process Protocol 21:19 Rhythm Strips Once PEDRITO 06/15/25 In Process Every Shift 21:19 Basic Metabolic Panel LAB 06/16/25 Verified 04:00 Potassium Chl PHA 06/15/25 In Process 20meq/100ml 21:30 Ceftriaxone 1gm/50ml PHA 06/15/25 In Process (Rocephin) 21:30 Morphine Sulfate PHA 06/15/25 In Process Injection 21:30 Date of Service: Jun 15, 2025 Billing Provider: MARVIN PITTMAN MD Common Visit Codes: 60441-[id number] INP/OBS CARE (HIGH) Secondary Visit Codes: [id number] CARE PLAN 30 MINUTES RAHEEL CERDA RESIDENT Jun 15, 2025 22:14 SCOTT MCKINLEY RESIDENT Jun 16, 2025 04:10
[2025-06-15] MEDS ORDERED: PANTOPRAZOLE 40 MG/10 ML VIAL INJ IV ONE (22:30)
[2025-06-15] MEDS ORDERED: ONDANSETRON HCL 4 MG/2 ML VIAL IV PRN (22:30)
[2025-06-15 23:01] LABS: Free T4 (Free Thyroxine) 1.37 ng/dL (0.89-1.76)
--- NOTE | 2025-06-16 02:06 | DVHDSRES ---
Discharge Summary Date of Admission Resident Creating Document: RAHEEL CERDA RESIDENT Jun 15, 2025 at 21:19 Date of Discharge: Jun 15, 2025 Admitting Diagnosis Hyperemesis Gravidum Wounds: No wounds Labs/Diagnostic Data: Laboratory Results Test 06/15/25 21:37 06/15/25 15:43 06/15/25 15:33 Lactic Acid Level 2.0 mmol/L (0.4-2.0) Free Thyroxine (T4) Calculated 1.37 ng/dL (0.89-1.76) Total Triiodothyronine (TT3) 0.97 ng/mL (0.60-1.81) Beta HCG, Quantitative 72731.5 mIU/mL (1.5-4.2) White Blood Count 8.1 10^3/uL (4.4-10.8) Red Blood Count 4.48 10^6/uL (4.0-5.20) Hemoglobin 13.1 g/dL (12.2-16.2) Hematocrit 37.2 % (36.0-46.0) Mean Corpuscular Volume 83.2 fL (80.0-100.0) Mean Corpuscular Hemoglobin 29.3 pg (28.0-32.0) Mean Corpuscular Hemoglobin Concent 35.2 g/dL (32.0-36.0) Red Cell Distribution Width 15.8 % (11.8-14.3) Platelet Count 354 10^3/uL (140-450) Mean Platelet Volume 7.9 fL (6.9-10.8) Neutrophils (%) (Auto) 66.7 % (37.0-80.0) Lymphocytes (%) (Auto) 25.0 % (10.0-50.0) Monocytes (%) (Auto) 7.1 % (0.0-12.0) Eosinophils (%) (Auto) 0.7 % (0.0-7.0) Basophils (%) (Auto) 0.5 % (0.0-2.0) Neutrophils # (Auto) 5.4 10 ^3/uL (1.6-8.6) Lymphocytes # (Auto) 2.0 10 ^3/uL (0.4-5.4) Monocytes # (Auto) 0.6 10 ^3/uL (0-1.3) Eosinophils # (Auto) 0.1 10 ^3/uL (0-0.8) Basophils # (Auto) 0 10 ^3/uL (0-0.2) Nucleated Red Blood Cells 0.6 % Sodium Level 140 mmol/L (136-145) Potassium Level 3.3 mmol/L (3.5-5.1) Chloride Level 107 mmol/L (98-107) Carbon Dioxide Level 18 mmol/L (20-31) Anion Gap 15 (5-15) Blood Urea Nitrogen 9 mg/dL (9-23) Creatinine 0.76 mg/dL (0.550-1.02) Glomerular Filtration Rate Calc 114 mL/min (>90) BUN/Creatinine Ratio 11.8 (10.0-20.0) Serum Glucose 89 mg/dL (74-106) Hemoglobin A1c 4.7 % A1C (<5.7) Calcium Level 9.5 mg/dL (8.7-10.4) Phosphorus Level 3.3 mg/dL (2.4-5.1) Magnesium Level 1.8 mg/dL (1.6-2.6) Total Bilirubin 0.9 mg/dL (0.2-1.0) Direct Bilirubin 0.4 mg/dL (<0.3) Aspartate Amino Transferase (AST) 16 U/L (13-40) Alanine Aminotransferase (ALT) 10 U/L (7-40) Alkaline Phosphatase 54 U/L (46-116) Total Protein 7.9 g/dL (5.7-8.2) Albumin 4.9 g/dL (3.2-4.8) Lipase 40 U/L (12-53) Vitamin B12 Level 393 pg/mL (211-911) Vitamin D 25-Hydroxy 22.9 ng/mL (30.0-100) Thyroid Stimulating Hormone (TSH) 0.31 uIU/mL (0.55-4.78) Urine Color Yellow (Yellow) Urine Clarity Clear (Clear) Urine pH 6.0 (5.0-9.0) Urine Specific [place] 1.037 (1.001-1.035) Urine Protein 1+ (Negative) Urine Ketones 4+ (Negative) Urine Blood 2+ /uL (Negative) Urine Nitrite Negative (Negative) Urine Bilirubin Negative (Negative) Urine Urobilinogen 2 mg/dL (Negative) Urine Leukocyte Esterase 1+ /uL (Negative) Urine RBC 110 /hpf (0 - 4) Urine Microscopic WBC 16 /HPF (0-5) Urine Squamous Epithelial Cells Few /hpf (<5) Urine Bacteria None seen /hpf (None Seen) Urine Mucus Few (None Seen) Urine Glucose Normal mg/dL (Normal) Urine Test Positive (Negative) Other Laboratory Tests 06/15/25 15:43 Brief Hx & Hospital Course: Ms. Gilman is a 19-year-old female, G3A2P1, with prior medical history of previous suicide attempt, who presents today with chief complaint of vomiting and abdominal pain. The patient states she was recently diagnosed with hyperemesis gravidum. That for the last five days she has had persistent emetic episodes (approximately every 15-20 minutes), with 6+ episodes today, which have kept her from being able to eat or drink water. This was associated with right flank pain described as achy, intermittent, non-radiating, 3-4/10 intensity, aggravated by movements, without relieving factors. The patient states she terminated her yesterday via pill and completed process with a D&C today. Due to persistent vomiting the patient sought medical attention at the ED. On evaluation in the ED, the patient was hypotensive. Initial labs show CBC within normal range, hypokalemia, decreased TSH, and [place] [address].5. UA is suggestive of UTI. Transabdominal obstetric ultrasound shows no intrauterine or ectopic . The patient was started on IV Zofran, IV fluids, and antibiotics. She was admitted for further work up and monitoring. The patient later stated that she felt better and wished to leave. She was counseled on multiple occasions on the importance staying for further monitoring and treatment. The risks of leaving were thoroughly explained to the patient. She stated on multiple time she understood the risks of leaving and accepted them. She signed the AMA forms and subsequently left. Operations or Procedures OBSTETRIC ULTRASOUND PRIOR TO 14 WEEKS CLINICAL INDICATION: cramping, patient took pill yesterday. Heavy bleeding. TECHNIQUE: Multiple grayscale ultrasound images were obtained of the pelvis via transabdominal a approach for obstetric evaluation. Limited color Doppler and spectral Doppler acquisitions were also obtained. COMPARISON: US OB ULTRASOUND COMP GTR 14 WKS on DOS: 10/08/24, US OB ULTRASOUND COMP LESS 14WKS on DOS: 06/19/24, US OB TRANS VAGINAL US on DOS: 06/19/24 FINDINGS: Uterus: 10.2 x 5.5 x 5.9 cm. Endometrium measures 7.3 mm. no intrauterine . Right adnexa: right ovary 3.9 x 3.2 x 3.0 cm. Normal arterial blood flow in the ovary. No right adnexal mass seen. Left adnexa: left ovary 2.7 x 2.3 x 2.4 cm. Normal arterial blood flow in the ovary. No left adnexal mass seen. Other: None IMPRESSION: 1. No intrauterine or ectopic seen at this time. Condition at Discharge: Undetermined Final Diagnosis/Problems List Intractable vomiting secondary to Hyperemesis Gravidum Dehydration secondary to above Hypokalemia, 3.3, secondary to above , s/p voluntary termination Acute Cystits with hematuria Vitamin D Deficiency Tobacco use Marijuana Use Obesity, BMI 31.1 kg/m2 Discharge Disposition: AMA Discharge Instruct/Medications Scheduled Vit W/ Ferrous Fumara ( One Daily), 1 TAB PO DAILY Discharge Statement: "Patient was advised to return to the ER or call 911 if any headaches, dizziness, shortness of breath, chest pain, abdominal pain, bleeding, fevers, or worsening of medical condition. Patient was counseled about treatment plan, medications, possible side effects, patientverbalized understanding. All questions were answered to the best of my ability. This discharge took greater then 30 minutes in planning, reviewing documentation, counseling the patient, and discussing with other team members." ASSESSMENT ASSESSMENT Assessment RAHEEL CERDA RESIDENT Jun 16, 2025 02:06 SCOTT MCKINLEY RESIDENT Jun 16, 2025 04:12
[2025-06-16] MEDS ORDERED: PANTOPRAZOLE 40 MG/10 ML VIAL INJ IV SCH (10:00)
== END 2025-06-15 23:50 | disposition left against medical advice (07) | DRG 422 ==
LOC: ER 15:25 → OVERFLOW 21:19 → TELE-EAST 23:54
PROVIDERS: ATTEND Emergency Medicine
DX: E86.0 Dehydration (principal); E55.9 Vitamin D deficiency, unspecified; N30.01 Acute cystitis with hematuria; E87.6 Hypokalemia; E66.9 Obesity, unspecified; Z53.29 Procedure and treatment not carried out because of patient's decision for other reasons; N93.9 Abnormal uterine and vaginal bleeding, unspecified; Z83.3 Family history of diabetes mellitus; Z91.013 Allergy to seafood; Z68.31 Body mass index [BMI] 31.0-31.9, adult; Z79.899 Other long term (current) drug therapy
CPT/HCPCS: 36415; 76801; 80048; 80076; 81001; 81025; 82306; 82607; 83036; 83605; 83690; 83735; 84100; 84439; 84443; 84480; 84702; 85025; 87086; 96374; G0378; J2405